=== PATIENT | male | born 1955 | race Caucasian/White ===

== ENCOUNTER → 2021-05-23 | Day surgery (SDC) | payer MEDICARE ==
[~2021-05-23] VITALS: Ht 177.8 cm; Wt 107.7 kg
[~2021-05-23] MED LIST: ADVAIR 250/5028 PUFF INH; CYCLOBENZAPRINE10 MG PO; DIFLUCAN 100MG100 MG PO; FLOMAX0.4 MG PO; JARDIANCE10 MG PO; LASIX40 MG PO; LIPITOR40 MG PO; LISINOPRIL5 MG PO; MULTIVITAMINS1 EAC2 PO; PREVACID30 M1 PO; SEROQUEL XR150 MG PO; SYNTHROID25 MCG PO; TOPROL XL 25MG25 MG PO; TOUJEO MAX300 UNIT/1 SC; VENTOLIN HFA IN18 GM INH
== END | disposition home or self-care (01) ==
LOC: FAS 09:49
DX: K63.5 Polyp of colon (principal); K64.8 Other hemorrhoids; K59.09 Other constipation; J44.9 Chronic obstructive pulmonary disease, unspecified; K21.9 Gastro-esophageal reflux disease without esophagitis; N42.9 Disorder of prostate, unspecified; E11.9 Type 2 diabetes mellitus without complications; Z87.891 Personal history of nicotine dependence; Z79.4 Long term (current) use of insulin; Z79.82 Long term (current) use of aspirin; Z98.84 Bariatric surgery status; Z79.899 Other long term (current) drug therapy; Z88.6 Allergy status to analgesic agent; Z91.040 Latex allergy status
CPT/HCPCS: J2704; J7120